=== PATIENT | female | born 1970 | race Caucasian/White ===

== ENCOUNTER → 2018-02-11 11:40 | Outpatient (CLI) | payer BC, SELFPAY ==
--- NOTE | 2018-02-11 11:48 | BI_ITS ---
MAMMOGRAPHY - BILATERAL SCREENING 3-D AIRAM SYNTHESIS REASON FOR EXAM: Female, 48 years old. Bilateral Screening 3-D tomosynthesis PERTINENT HISTORY: Asymptomatic. Bilateral breast implants 2002 and replacements November 2016. Right stereotactic biopsy 7 years ago. Weight gain 15 pounds. No significant family history. TECHNIQUE: 2-D mammograms and 3-D Airam synthesis of the breast (s) were performed. CAD was performed. COMPARISON: 03/05/2015, 11/24/2013. FINDINGS: The breast composition is composed of scattered fibroglandular density. Scattered benign calcifications are seen. No dense spiculated dominant masses or suspicious microcalcification cluster are identified. No new architectural distortion, asymmetric density, adenopathy, skin thickening or nipple retraction identified. There has been no significant change identified since the prior study with inclusion and exclusion views. BI/SCREENING MAMM (CAD), BILAT IMPRESSION: No mammographic sign of malignancy. Routine yearly mammograms recommended. ASSESSMENT CATEGORY: BIRADS Category 2: Benign. A letter regarding these results will be sent to the patient by the facility within 30 days. FOLLOW UP RECOMMENDATION: Yearly follow up mammogram recommended. (A) Negative mammographic results should not deter biopsy as a palpable lesion if present should be followed based on clinical grounds and biopsy performed if clinically persistent for 3 months or increasing size. Approximately 10% of breast cancers are not detected by mammography. A normal mammogram should not delay biopsy of a clinically suspicious abnormality. Dense breast tissue may obscure neoplasm. Electronically Signed: Lonnie Pacheco, at 19:15 EDT Tel , Service support ,
== END ==
PROVIDERS: Family Provider Family Medicine; PCP Family Medicine; Visit Provider Nurse Practitioner Women's Health
DX: Z12.31 Encounter for screening mammogram for malignant neoplasm of breast (principal)
CPT/HCPCS: 77063; 77067

== ENCOUNTER → 2018-07-14 08:44 | Outpatient (CLI) | payer BC, SELFPAY ==
[2018-05-12 13:13] VITALS: BMI 22.3
--- NOTE | 2018-07-14 08:49 | RAD_ITS ---
STUDY: X-RAY - LEFT FOOT CLINICAL: Female, 48 years old. Increasing pain in the region of the second through fourth metatarsophalangeal joints. TECHNIQUE: 3 view(s) of the foot. COMPARISON: None. FINDINGS: Normal talus, calcaneus, and tarsal bones. Normal visualized subtalar, talonavicular, calcaneocuboid, tarsal and tarsometatarsal articulations. Normal metatarsi. Normal metatarsophalangeal joint of the great toe. Normal tibial and fibular sesamoid bones. Normal interphalangeal joint of the great toe. Normal phalanges of the great toe. Normal second through fifth metatarsophalangeal joints. Normal interphalangeal joints and phalanges of the lesser toes. The soft tissue structures are unremarkable. RAD/Foot min 3 Views IMPRESSION: Normal x-ray examination of the foot. Electronically Signed: Jelani Milian DO at 22:25 EST Tel [phone], Service support ,
== END ==
PROVIDERS: Family Provider Family Medicine; PCP Family Medicine; Referring Provider Family Medicine; Visit Provider Family Medicine
DX: M79.672 Pain in left foot (principal)
CPT/HCPCS: 73630

== ENCOUNTER → 2020-03-19 10:26 | Outpatient (CLI) | payer BC, SELFPAY | PROVIDERS: Referring Provider Physician Assistant Surgical; Visit Provider Physician Assistant Surgical | DX: U07.1 COVID-19 (principal) | CPT/HCPCS: 87635; C9803; U0003 ==

== ENCOUNTER → 2020-06-14 12:56 | Outpatient (CLI) | payer BC, SELFPAY ==
[2020-05-31 13:02] VITALS: BMI 25.7
--- NOTE | 2020-06-14 12:58 | BI_ITS ---
MAMMOGRAPHY - BILATERAL SCREENING REASON FOR EXAM: Female, 50 years old. Routine annual screening examination. PERTINENT HISTORY: Non-contributory. Remote right stereotactic breast biopsy. History of prior bilateral breast implants. TECHNIQUE: Digital bilateral breast airam (3D mammographic acquisition) in the CC and MLO projections. 2-D mediolateral oblique (MLO) and craniocaudad (CC) views of both breasts were obtained. CAD: Full Field Digital Mammography with Computer Added Detection was performed. COMPARISON: Comparison is made with prior study dated 02/11/2018 and 03/05/2015. FINDINGS: Breast Composition: The breasts are heterogeneously dense, which may obscure small masses. There are no dominant masses or suspicious calcifications. Stable appearance of the bilateral breast implants. No other significant abnormalities are identified. There has been no significant change since the prior study. BI/SCRN MAMM (CAD)W/AIRAM BILAT IMPRESSION: Stable bilateral screening mammogram. Yearly follow-up mammogram recommended. (A) ASSESSMENT CATEGORY: BIRADS Category 2: Benign. A letter regarding these results will be sent to the patient by the facility within 30 days. Approximately 10% of breast cancers are not detected by mammography. A normal mammogram should not delay biopsy of a clinically suspicious abnormality. [id number] Electronically Signed: Janak Heck MD at 14:03 EST , Service support ,
== END ==
PROVIDERS: Referring Provider Obstetrics & Gynecology; Visit Provider Obstetrics & Gynecology
DX: Z12.31 Encounter for screening mammogram for malignant neoplasm of breast (principal)
CPT/HCPCS: 77063; 77067

== ENCOUNTER 2021-06-17 09:07 | Outpatient (CLI) | payer BC, SELFPAY ==
[2021-06-17 10:39] LABS: PTHIN 65.4 pg/mL (18.4-80.1)
[2021-06-17 10:40] LABS: Vitamin D,25 Hydroxy 41.8 ng/mL
[2021-06-17 10:48] LABS: Anion Gap 8 (5-15); BUN 13 mg/dL (7-18); BUN/Creat Ratio 16.3 RATIO (10-20); Calcium,Total 9.1 mg/dL (8.5-10.1); Chloride 104 mmol/L (98-107); Cholesterol 261 mg/dL (200); EST Glomerular Filtration Rate 80 mL/min (>60); Est Glom Filt Rate - Afr Amer 97 mL/min (>60); Glucose 84 mg/dL (74-106); High Density Lipoprotein 71 mg/dL; Potassium 4.1 mmol/L (3.5-5.1); Sodium Level 139 mmol/L (136-145); Thyroid Stim Hormone (TSH) 2.52 uIU/mL (0.358-3.74); Triglycerides 103 mg/dL; Very Low Density Lipoprotein 21 mg/dL (5-40)
== END 2021-06-17 23:59 | disposition home or self-care (01) ==
PROVIDERS: PCP Family Medicine; Referring Provider Family Medicine; Visit Provider Family Medicine
DX: E55.9 Vitamin D deficiency, unspecified (principal); Z13.29 Encounter for screening for other suspected endocrine disorder; M85.80 Other specified disorders of bone density and structure, unspecified site; Z13.220 Encounter for screening for lipoid disorders; Z13.1 Encounter for screening for diabetes mellitus
CPT/HCPCS: 36415; 80048; 80061; 82306; 82330; 83970; 84443

== ENCOUNTER 2021-06-20 12:29 | Outpatient (CLI) | payer BC, SELFPAY ==
--- NOTE | 2021-06-20 12:40 | BI_ITS ---
MAMMOGRAPHY - BILATERAL SCREENING REASON FOR EXAM: Female, 51 years old. Routine annual screening examination. PERTINENT HISTORY: Non-contributory. Bilateral breast implants. Remote right stereotactic breast biopsy. TECHNIQUE: Digital bilateral breast airam (3D mammographic acquisition) in the CC and MLO projections. 2-D mediolateral oblique (MLO) and craniocaudad (CC) views of both breasts were obtained. CAD: Full Field Digital Mammography with Computer Added Detection was performed. COMPARISON: Comparison is made with prior examination dated 06/14/2020 and 02/11/2018. FINDINGS: Breast Composition: The breasts are heterogeneously dense, which may obscure small masses. There are no dominant masses or suspicious calcifications. No other significant abnormalities are identified. There has been no significant change since the prior study. BI/SCRN MAMM (CAD)W/AIRAM BILAT IMPRESSION: Stable bilateral screening mammogram. Yearly follow-up mammogram recommended. (A) ASSESSMENT CATEGORY: BIRADS Category 2: Benign. A letter regarding these results will be sent to the patient by the facility within 30 days. Approximately 10% of breast cancers are not detected by mammography. A normal mammogram should not delay biopsy of a clinically suspicious abnormality. [id number] Electronically Signed: Janak Heck MD at 14:02 EST ,
[2021-06-25 13:11] LABS: HPV APTIMA, High Risk Negative (Negative)
== END 2021-06-20 23:59 | disposition home or self-care (01) ==
LOC: OPBI 12:39
PROVIDERS: Obstetrics & Gynecology; PCP Family Medicine; Referring Provider Obstetrics & Gynecology; Visit Provider Obstetrics & Gynecology
DX: Z12.31 Encounter for screening mammogram for malignant neoplasm of breast (principal); Z12.4 Encounter for screening for malignant neoplasm of cervix
CPT/HCPCS: 77063; 77067; 87624; 88175; G0145

== ENCOUNTER → 2022-07-03 | Outpatient (CLI) | payer BC, SELFPAY ==
[2022-07-03 12:42] LABS: Absolute Neutrophil Count 2.3 X10^3/uL (2.0-7.7); Basophil# 0.04 X10^3/uL; Basophil% 0.9 % (0-1); Eosinophil# 0.25 X10^3/uL; Eosinophils% 5.7 % (0-5); Hematocrit 41.4 % (37-47); Lymphocyte % 31.9 % (19-41); Mean Corp Hgb Conc 31.4 g/dL (32-36); Mean Corpuscular Hgb 28.2 pg (27.0-32.0); Mean Corpuscular Volume 89.8 fL (81-99); Monocyte# 0.44 X10^3/uL; NRBC Flagged by Analyzer 0 % (0-5); Neutrophil # 2.25 X10^3/uL (2.7-7.7); Neutrophil % 51.3 % (47-70); Platelet Count 379 K/mm3 (150-450); RBC Distribution Width CV 12.3 % (11.6-14.6); RBC Distribution Width SD 40.6 fl (35.1-43.9); Red Blood Count 4.61 M/mm3 (4.2-5.4); White Blood Count 4.4 K/mm3 (4.4-11.0)
[2022-07-03 13:51] LABS: ALB/GLOB Ratio 1.1 RATIO (0.9-2.4); AST(SGOT) 18 U/L (15-37); Alanine Aminotransfer ALT/SGPT 23 U/L (13-56); Alkaline Phosphatase 90 U/L (45-117); Anion Gap 8 (5-15); BUN 13 mg/dL (7-18); BUN/Creat Ratio 16.7 RATIO (10-20); Calcium,Total 9.6 mg/dL (8.5-10.1); Chloride 105 mmol/L (98-107); Cholesterol 264 mg/dL (200); Creatinine, Serum 0.78 mg/dL (0.55-1.02); EST Glomerular Filtration Rate 82 mL/min (>60); Est Glom Filt Rate - Afr Amer 100 mL/min (>60); Globulin 3.8 g/dL (2.2-4.2); Glucose 82 mg/dL (74-106); High Density Lipoprotein 72 mg/dL; Potassium 4.3 mmol/L (3.5-5.1); Protein, Total 7.8 g/dL (6.4-8.2); Sodium Level 139 mmol/L (136-145); Thyroid Stim Hormone (TSH) 2.08 uIU/mL (0.358-3.74); Triglycerides 115 mg/dL; Very Low Density Lipoprotein 23 mg/dL (5-40)
== END | disposition home or self-care (01) ==
LOC: BIMLAB 09:50
PROVIDERS: PCP Nurse Practitioner Family; Referring Provider Nurse Practitioner Family; Visit Provider Nurse Practitioner Family
DX: Z00.00 Encounter for general adult medical examination without abnormal findings (principal)
CPT/HCPCS: 36415; 80053; 80061; 84443; 85025

== ENCOUNTER → 2022-11-25 | Outpatient (CLI) | payer BC, SELFPAY ==
--- NOTE | 2022-11-25 09:58 | BD_ITS ---
STUDY: DUAL ENERGY X-RAY ABSORPTIOMETRY / DXA REASON FOR EXAM: Female, 52 years old. postmenopause al/screening TECHNIQUE: Bone Mineral Density (BMD) measurements of lumbar spine and bilateral hips were obtained. COMPARISON: Comparison is made with prior study dated March 05, 2015. FINDINGS: Lumbar Spine (L1-L4): g/cm2 (0.827) / T-score (-2.0) / Z-score (-1.0) Findings are suggestive of osteopenia with a moderate fracture risk. Left Femur Total: g/cm2 (0.734) / T-score (-1.7) / Z-score (-1.1) Left Femoral Neck: g/cm2 (0.567) / T-score (-2.5) / Z-score (-1.6) Right Femur Total: g/cm2 (0.703) / T-score (-2.0) / Z-score (-1.3) Right Femoral Neck: g/cm2 (0.559) / T-score (-2.6) / Z-score (-1.6) The T-Scores on the most recent prior examination were: Lumbar Spine (L1-L4): There has been worsening of bone density since the previous examination. Left Femur Total: which represents an improvement of 0.3%. Right Femur Total: which represents a worsening of 1.5%. BD/Dexa Bone Density Study IMPRESSION: The patient is considered osteoporotic as outlined below according to World Angel Organization (WHO) criteria with a high fracture risk. There has been worsening of bone density since the previous examination. Reference Information: The T-score is the number of standard deviations above or below the standard which is normal for young adults at their peak bone mineral density. The World Health Organization (WHO) interprets the T-scores as follows: Above -1 Normal bone density Between -1 and -2.5 Osteopenia Equal to / or below -2.5 Osteoporosis As a practical clinical guideline, osteopenia may be graded as follows: Mild -1 through -1.5 Moderate -1.6 through -2.0 Severe -2.1 through -2.4 The Z-score is the number of standard deviations above or below age-matched controls. A Z-score of less than -1.5 would be considered abnormal. References: 1. NIH Osteoporosis and Related Bone Diseases www osteo.org 2. International Society for Clinical Densitometry www iscd.org 3. National Osteoporosis Foundation www nof.org Electronically Signed: Janak Heck MD at 9:56 EDT ,
== END | disposition home or self-care (01) ==
LOC: OPBI 08:50
PROVIDERS: PCP Nurse Practitioner Family; Referring Provider Nurse Practitioner Family; Visit Provider Nurse Practitioner Family
DX: Z78.0 Asymptomatic menopausal state (principal)
CPT/HCPCS: 77080

== ENCOUNTER → 2023-04-07 | Outpatient (CLI) | payer BC, SELFPAY | END | disposition home or self-care (01) | LOC: MTRAD 16:27 | PROVIDERS: PCP Internal Medicine; Referring Provider Chiropractor; Visit Provider Chiropractor | DX: M54.2 Cervicalgia (principal); M99.01 Segmental and somatic dysfunction of cervical region | CPT/HCPCS: 72040 ==

== ENCOUNTER → 2023-07-09 | Outpatient (CLI) | payer BC, SELFPAY ==
[2023-07-09 10:15] LABS: Absolute Lymphocyte Count 1.56 X10^3/uL (0.83-4.51); Absolute Neutrophil Count 1.9 X10^3/uL (2.0-7.7); Basophil# 0.03 X10^3/uL; Basophil% 0.7 % (0-1); Eosinophil# 0.13 X10^3/uL; Eosinophils% 3.2 % (0-5); Hematocrit 39.9 % (37-47); Lymphocyte # 1.56 X10^3/ul (0.83-4.51); Lymphocyte % 38.8 % (19-41); Mean Corp Hgb Conc 30.1 g/dL (32-36); Mean Corpuscular Hgb 23.7 pg (27.0-32.0); Mean Corpuscular Volume 78.9 fL (81-99); Mean Platelet Vol. 9.7 fl (6.2-12.0); Monocyte# 0.36 X10^3/uL; NRBC Flagged by Analyzer 0 % (0-5); Neutrophil # 1.93 X10^3/uL (2.7-7.7); Neutrophil % 48.1 % (47-70); Platelet Count 352 K/mm3 (150-450); RBC Distribution Width CV 15.1 % (11.6-14.6); RBC Distribution Width SD 42.9 fl (35.1-43.9); Red Blood Count 5.06 M/mm3 (4.2-5.4)
[2023-07-09 10:50] LABS: AST(SGOT) 17 U/L (15-37); Alanine Aminotransfer ALT/SGPT 23 U/L (13-56); Albumin, Serum 3.8 g/dL (3.2-5.0); Alkaline Phosphatase 103 U/L (45-117); Anion Gap 2 (5-15); BUN 11 mg/dL (7-18); BUN/Creat Ratio 11.9 RATIO (10-20); Calcium,Total 9.7 mg/dL (8.5-10.1); Chloride 106 mmol/L (98-107); Cholesterol 271 mg/dL (200); Creatinine, Serum 0.92 mg/dL (0.55-1.02); EST Glomerular Filtration Rate 67 mL/min (>60); Est Glom Filt Rate - Afr Amer 81 mL/min (>60); Ferritin 8 ng/mL (8-252); Globulin 3.8 g/dL (2.2-4.2); Glucose 81 mg/dL (74-106); High Density Lipoprotein 72 mg/dL; Iron 126 ug/dL (50-170); Iron Binding Capacity,Total 466 ug/dL (250-450); Potassium 4.4 mmol/L (3.5-5.1); Protein, Total 7.6 g/dL (6.4-8.2); Sodium Level 137 mmol/L (136-145); Thyroid Stim Hormone (TSH) 2.89 uIU/mL (0.358-3.74); Triglycerides 149 mg/dL; Very Low Density Lipoprotein 30 mg/dL (5-40)
== END | disposition home or self-care (01) ==
LOC: LAB 09:34
PROVIDERS: PCP Internal Medicine; Referring Provider Internal Medicine; Visit Provider Internal Medicine
DX: M81.0 Age-related osteoporosis without current pathological fracture (principal); D64.9 Anemia, unspecified; F41.9 Anxiety disorder, unspecified; Z13.6 Encounter for screening for cardiovascular disorders
CPT/HCPCS: 36415; 80053; 80061; 82728; 83540; 83550; 84443; 85025

== ENCOUNTER 2023-09-10 14:13 | Outpatient (RCR) | payer SELFPAY | END 2023-09-10 19:00 | disposition home or self-care (01) | LOC: PT 14:13 | PROVIDERS: PCP Internal Medicine | DX: Z00.00 Encounter for general adult medical examination without abnormal findings (principal) ==

== ENCOUNTER 2023-11-01 09:30 | Outpatient (RCR) | payer BC, SELFPAY | END 2023-11-07 23:59 | LOC: NS 09:30 | PROVIDERS: PCP Internal Medicine; Visit Provider Internal Medicine | DX: Z71.3 Dietary counseling and surveillance (principal); E66.3 Overweight; Z68.26 Body mass index [BMI] 26.0-26.9, adult | CPT/HCPCS: 97802 ==

== ENCOUNTER 2023-12-02 07:24 | Outpatient (RCR) | payer BC, SELFPAY | END 2023-12-08 23:59 | LOC: NS 07:24 | PROVIDERS: PCP Internal Medicine; Visit Provider Internal Medicine | DX: Z71.3 Dietary counseling and surveillance (principal); E66.3 Overweight | CPT/HCPCS: 97803 ==

== ENCOUNTER 2024-01-04 08:24 | Outpatient (RCR) | payer BC, SELFPAY | END 2024-01-08 23:59 | LOC: NS 08:24 | PROVIDERS: PCP Internal Medicine; Visit Provider Internal Medicine | DX: Z71.3 Dietary counseling and surveillance (principal); E66.3 Overweight; Z68.25 Body mass index [BMI] 25.0-25.9, adult | CPT/HCPCS: 97803 ==

== ENCOUNTER → 2024-08-25 | Outpatient (CLI) | payer BC, SELFPAY ==
[2024-08-25 08:28] LABS: Absolute Lymphocyte Count 1.43 X10^3/uL (0.83-4.51); Absolute Neutrophil Count 2.5 X10^3/uL (2.0-7.7); Basophil# 0.03 X10^3/uL; Basophil% 0.7 % (0-1); Eosinophil# 0.18 X10^3/uL; Eosinophils% 3.9 % (0-5); Hemoglobin 13.6 g/dL (12.0-15.0); Lymphocyte # 1.43 X10^3/ul (0.83-4.51); Lymphocyte % 31.2 % (19-41); Mean Corpuscular Hgb 29.2 pg (27.0-32.0); Mean Platelet Vol. 9.4 fl (6.2-12.0); Monocyte# 0.43 X10^3/uL; Monocyte% 9.4 % (0-10); NRBC Flagged by Analyzer 0 % (0-5); Neutrophil % 54.4 % (47-70); Platelet Count 261 K/mm3 (150-450); RBC Distribution Width CV 13.4 % (11.6-14.6); Red Blood Count 4.65 M/mm3 (4.2-5.4); White Blood Count 4.6 K/mm3 (4.4-11.0)
[2024-08-25 09:10] LABS: ALB/GLOB Ratio 1.6 RATIO (0.9-2.4); AST(SGOT) 25 U/L (<=31); Alanine Aminotransfer ALT/SGPT 23 U/L (<=34); Albumin, Serum 4.3 g/dL (3.5-5.0); Alkaline Phosphatase 71 U/L (35-104); Anion Gap 9 (5-15); BUN 14 mg/dL (4-19); BUN/Creat Ratio 16.4 RATIO (10-20); Calcium,Total 9.1 mg/dL (7.6-11.0); Carbon Dioxide 24.9 mmol/L (21.0-32.0); Chloride 103 mmol/L (98-108); Cholesterol 274 mg/dL (<=200); Creatinine, Serum 0.84 mg/dL (0.70-1.20); EST Glomerular Filtration Rate 82 (>60); Globulin 2.6 g/dL (2.2-4.2); Glucose 86 mg/dL (70-99); High Density Lipoprotein 61 mg/dL; Low Density Lipoprotein Calc. 182 mg/dL; Potassium 4.3 mmol/L (3.3-5.1); Protein, Total 6.9 g/dL (5.9-8.4); Sodium Level 137 mmol/L (133-145); Total Bilirubin 0.27 mg/dL (0.00-1.30); Triglycerides 156 mg/dL; Very Low Density Lipoprotein 31 mg/dL (5-40); cholesterol:hdl ratio screen 4.51
[2024-08-25 09:31] LABS: Vitamin D,25 Hydroxy 33.4 ng/mL (30-100)
== END | disposition home or self-care (01) ==
LOC: LAB 08:09
PROVIDERS: Internal Medicine Endocrinology, Diabetes & Metabolism; PCP Internal Medicine; Referring Provider Internal Medicine; Visit Provider Internal Medicine
DX: M81.8 Other osteoporosis without current pathological fracture (principal); E78.2 Mixed hyperlipidemia
CPT/HCPCS: 36415; 80053; 80061; 82306; 85025

== ENCOUNTER → 2024-12-08 | Outpatient (CLI) | payer BC, SELFPAY | END | disposition home or self-care (01) | LOC: OPBI 10:33 | PROVIDERS: PCP Internal Medicine; Referring Provider Obstetrics & Gynecology; Visit Provider Obstetrics & Gynecology | DX: Z12.31 Encounter for screening mammogram for malignant neoplasm of breast (principal) | CPT/HCPCS: 77063; 77067 ==

== ENCOUNTER 2025-01-18 15:48 | Emergency (ER) | payer BC, SELFPAY ==
[2025-01-18 15:49] VITALS: BP 141/84; PULSE 75; RESP 16; TEMP 36.6; O2SAT 99
--- NOTE | 2025-01-18 16:08 | RAD_ITS ---
PROCEDURE: RIGHT FOOT MIN 3 VIEWS 01/18/2025 REASON FOR EXAM: PAIN/TRAUMA TECHNIQUE: Procedure Code: RADFO Modality: DX Procedure: FOOT MIN 3 VIEWS Laterality: Right COMPARISON: None. FINDINGS: No acute fracture or dislocation. Alignment is anatomic. Preserved joint spaces. No aggressive osseous lesion. No marked soft tissue swelling or radiopaque foreign body. RAD/Foot min 3 Views IMPRESSION: No acute fracture or dislocation. Reading Location: [facility]
[2025-01-18] MEDS: HYDROcodone Bitartrate/Apap 5/325 Tablet PO (16:12)
--- NOTE | 2025-01-18 16:15 | RAD_ITS ---
PROCEDURE: LEFT KNEE 4 OR MORE VIEWS 01/18/2025 REASON FOR EXAM: PAIN TECHNIQUE: Procedure Code: RADKN Modality: DX Procedure: KNEE 4 OR MORE VIEWS Laterality: Left COMPARISON: None. FINDINGS: Acute nondisplaced transversely oriented fracture through the inferior patellar pole, best seen on lateral view. Small traumatic knee joint effusion. No additional acute fracture or dislocation, alignment is anatomic with preserved joint spaces. Mild prepatellar soft tissue swelling. RAD/Knee 4 or More Views IMPRESSION: Acute nondisplaced transverse fracture through the inferior patellar pole. Small traumatic knee joint effusion. No dislocation. Reading Location: [facility]
--- NOTE | 2025-01-18 16:33 | EDS_ITS ---
HPI HPI - Fall History of Present Illness Chief Complaint: Fall Narrative Narrative: Chief complaint and HPI: 54-year-old female with past medical history of anxiety, migraines, HLD presents for evaluation of left knee and right foot pain after a mechanical fall. Patient states she was coming out of [facility] when she tripped on a ramp. States she landed on her right foot and her left knee. Has abrasion to the right knee without any pain. Patient states she has difficulty ambulating secondary to the pain. Was seen by her PCP who sent her to the emergency department. She denies hitting her head. No LOC. Not on blood thinners. Review of systems: See HPI Medications: As listed on the chart Allergies: As listed on the chart PFSH: Per chart Vital signs: As listed on the chart. Reviewed. Physical exam: Gen: A&O x3, NAD Head: Normocephalic, atraumatic Eyes: No sclera icterus, conjunctiva clear, PERRL ENT: Moist mucous membranes, face atraumatic Neck: Trachea midline, No JVD, full range of motion CV: RRR, no murmurs Resp: Lungs CTA BL, no w/r/c Musc: Full ROM, no deformity, ecchymosis and swelling to the dorsum of the lateral right foot -patient tender to palpation in this area, the rest of the right lower extremity nontender to palpation including the knee/tib- fib/ankle/achilles/calcaneus, compartments soft bilaterally, DP/PT pulses +2/4 bilaterally, good capillary refill, patient has mild swelling and tenderness to palpation of the left knee-no knee instability with full range of flexion and extension, left tib-fib/ankle/foot/achilles/calcaneus nontender Skin: Warm, dry, abrasion to the bilateral knees Neuro: Alert, oriented, grossly intact, sensation intact, GCS 15 Psych: Cooperative, appropriate mood and affect [facility] Medical History Mixed hyperlipidemia Spontaneous pneumothorax Osteoporosis COVID-19 History of osteopenia History of migraine headaches Home Medications ?Medication ?Instructions ?Recorded ?Last Taken ?Type denosumab 60 mg/mL subcutaneous 60 mg subcut [id number] #1 mL 07/19/23 Unknown Rx syringe (Prolia) melatonin 10 mg capsule 10 mg PO HS PRN 08/24/24 Unk nown History meloxicam 7.5 mg tablet 7.5 mg PO QDAY #90 tabs 08/08 12/01 Unknown Rx rosuvastatin 5 mg tablet 5 mg PO QDAY #30 tabs Unknown Rx calcium 500 mg (as tab PO 10/26/24 Unknown Hist ory carbonate)-vitamin D3 200 unit-vit K2 90 mcg tablet fexofenadine 60 mg tablet (Alie 60 mg PO QDAY PRN 0 10/26/24 Unknown History Allergy) lactobacillus combination no.9 4 4,000 mmu cells PO QD AY 10/26/24 Unknown History billion cell capsule (Adult 50 Plus Probiotic) multivitamin (One Daily 1 tab PO QDAY 10/26/24 Unkno wn History Multivitamin tablet) tizanidine 4 mg tablet 4 mg PO ONCE PRN for muscle spasm 11/02/24 Unknown Rx #30 TABLETS lorazepam 0.5 mg tablet 0.5 mg PO DAILY PRN anxiety #20 12/08/24 Unknown Rx tabs buspirone 5 mg tablet 5 mg PO BID #60 tabs 5 Unknown Rx ondansetron 4 mg disintegrating 4 mg PO Q8H PRN nausea and 12/26/24 Unknown Rx tablet vomiting #30 tabs venlafaxine 37.5 mg 37.5 mg PO QDAY #30 caps 07/04 Unknown Rx capsule,extended release 24 hr leg brace (LUIS ALBERTO Ankle Brace) #1 ea 01/18/25 Unknown Rx leg brace (LUSI ALBERTO Knee Brace) #1 ea 01/18/25 Unknown Rx ondansetron 4 mg disintegrating 4 mg PO Q8H PRN PRN Na usea #10 tabs 01/18/25 Unknown Rx tablet oxycodone 5 mg capsule 5 mg PO Q6H PRN pain 3 days #12 01/18/25 Unknown Rx caps Allergy/AdvReac Type Severity Reaction Status Date / Time No Known Allergies Allergy Verified 01/18/25 15:49 Family History Mother Diabetes CVA (cerebral vascular accident) x3 Osteoporosis Father Cancer melanoma Surgical History History of endometrial ablation History of bilateral breast implants History of D&C Social History household members: family current occupational status: employed 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 pets and animals: Yes (1) pets and animals: dog(s) Smoking Status: Never smoker Electronic Cigarette Use: not used alcohol intake: current alcohol intake frequency: holidays/special occasions only details: social substance use type: does not use caffeine: No what type of physical activity do you participate in: none frequency: 3-4 times per week seatbelt use: always do you feel safe at home: Yes additional social history: Robby Franklin 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 at 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 [place] EXAM Physical Exam Const Vital Signs: 01/18/25 15:49 01/18/25 16:04 01/18/25 17:48 Temperature 97.8 F Temperature Source Temporal Pulse Rate 75 73 Respiratory Rate 16 Respiratory Effort Normal Non-Labored Respiratory Depth Normal Respiratory Pattern Normal Blood Pressure 141/84 H 143/85 H Blood Pressure Mean 103 104 Pulse Ox 99 Oxygen Delivery Method Room Air Room Air 01/18/25 17:49 Temperature 97.8 F Temperature Source Pulse Rate 73 Respiratory Rate 16 Respiratory Effort Respiratory Depth Respiratory Pattern Blood Pressure 143/85 H Blood Pressure Mean 104 Pulse Ox 99 Oxygen Delivery Method MDM MDM MDM Narrative Medical decision making narrative: 54-year-old female with past medical history of anxiety, migraines, HLD presents for evaluation of left knee and right foot pain after a mechanical fall. Patient states she was coming out of [facility] when she tripped on a ramp. States she landed on her right foot and her left knee. Did not hit her head. No LOC. See physical exam findings. Differential diagnosis includes but is not limited to contusion, fracture, sprain. [place] given for pain. X-ray of the knee and foot attained. I do not think any further imaging or laboratory workup is needed at this time. X-ray of the left knee was personally viewed and interpreted by me. Patient has a patellar fracture. Radiology in agreement. X-ray of the right foot was personally interpreted and reviewed by me, ED physician. No obvious fracture or dislocation. Radiology in agreement. Patient's pain in her foot is likely secondary to contusion versus sprain. She will be placed in knee immobilizer and nonweightbearing to the left lower extremity for her patella fracture. Follow-up with Ortho. She confirmed understand the plan. Luis Alberto bandage was applied to her foot. She did well with crutches. Tylenol and Motrin as needed for pain. Narcotics for severe pain. Return precautions explained. Patient stable discharge home. Impression: 1. Left acute nondisplaced transverse fracture to the inferior patella pole 2. Right foot contusion/sprain 3. Mechanical fall Radiography Diagnostic Testing: Clinical Impression(s) from Imaging Studies Foot X-Ray 01/18/25 16:08 IMPRESSION: No acute fracture or dislocation. Reading Location: [facility] Knee X-Ray 01/18/25 16:15 IMPRESSION: Acute nondisplaced transverse fracture through the inferior patellar pole. Small traumatic knee joint effusion. No dislocation. Reading Location: [facility] Discharge Plan Triage Chief Complaint: Fall ED Provider: Oleg Lynn Dx/Rx/DC Orders Clinical Impression: Patellar fracture, Contusion of foot Instructions: Bruises (Contusions), ED Patella Fracture Prescriptions: New oxycodone 5 mg capsule 5 mg PO Q6H PRN (Reason: pain) 3 Days Qty: 12 0RF ondansetron 4 mg tablet,disintegrating 4 mg PO Q8H PRN PRN (Reason: Nausea) Qty: 10 0RF No Action melatonin 10 mg capsule 10 mg PO HS PRN meloxicam 7.5 mg tablet 7.5 mg PO QDAY Qty: 90 0RF fexofenadine [Alie Allergy] 60 mg tablet 60 mg PO QDAY PRN multivitamin [One Daily Multivitamin] Tablet 1 tab PO QDAY calcium carb-vitamin D3-vit K2 500 mg calcium- 200 unit-90 mcg tablet PO Adult 50 Plus Probiotic 4 billion cell capsule 4,000 mmu cells PO QDAY Rx Instructions: administer with a meal buspirone 5 mg tablet 5 mg PO BID Qty: 60 1RF Prolia 60 mg/mL syringe 60 mg subcut [id number] Qty: 1 1RF rosuvastatin 5 mg tablet 5 mg PO QDAY Qty: 30 3RF tizanidine 4 mg tablet 4 mg PO ONCE PRN (Reason: for muscle spasm) Qty: 30 0RF Rx Instructions: once daily at bedtime lorazepam 0.5 mg tablet 0.5 mg PO DAILY PRN (Reason: anxiety) Qty: 20 0RF ondansetron 4 mg tablet,disintegrating 4 mg PO Q8H PRN (Reason: nausea and vomiting) Qty: 30 0RF venlafaxine 37.5 mg capsule,extended release 24hr 37.5 mg PO QDAY Qty: 30 0RF (DME) LUIS ALBERTO Knee Brace Misc See Rx Instructions .Route Qty: 1 0RF Rx Instructions: As directed (DME) LUIS ALBERTO Ankle Brace Misc See Rx Instructions .Route Qty: 1 0RF Rx Instructions: As directed Primary Care Provider: Funmi Arriaza Referrals: Funmi Arriaza MD [Primary Care Provider] - 3-5 Days Matt Duncan DO [Med Staff - Active Staff] - 3-5 Days Activity Restrictions/Additional Instructions: You are nonweightbearing to the left lower extremity. Knee immobilizer. Follow-up with orthopedic surgery and primary care physician. Luis Alberto bandage as ne eded for foot contusion. Ice and elevation for swelling. Tylenol Motrin as needed for pain. Narcotic for severe pain. Print Language: Polish Disposition Disposition: Home, Self Care Discharge Date/Time: 01/18/25 18:00
[2025-01-18 17:48] VITALS: BP 143/85; PULSE 73
[2025-01-18 17:49] VITALS: BP 143/85; PULSE 73; RESP 16; TEMP 36.6; O2SAT 99
== END 2025-01-18 18:00 | disposition home or self-care (01) ==
PROVIDERS: Emergency Provider Surgery; PCP Internal Medicine; Visit Provider Surgery
DX: S82.035A Nondisplaced transverse fracture of left patella, initial encounter for closed fracture (principal); S80.211A Abrasion, right knee, initial encounter; F41.9 Anxiety disorder, unspecified; W19.XXXA Unspecified fall, initial encounter; S90.31XA Contusion of right foot, initial encounter; E78.2 Mixed hyperlipidemia; Z86.16 Personal history of COVID-19; W01.0XXA Fall on same level from slipping, tripping and stumbling without subsequent striking against object, initial encounter; Y92.531 Health care provider office as the place of occurrence of the external cause
CPT/HCPCS: 73564; 73630; 99284